=== PATIENT | male | born 1990 | race Caucasian/White ===

== ENCOUNTER 2018-05-04 12:47 | Emergency (ER) | payer BC ==
[2018-05-04] MEDS ORDERED: Pantoprazole 40 MG VIAL ONE (13:09)
[2018-05-04] MEDS ORDERED: Ondansetron PF 4 MG/2 ML Vial ONE (13:09)
[2018-05-04] MEDS ORDERED: Morphine 4 MG/ML VIAL ONE (13:09)
[2018-05-04] MEDS ORDERED: Sodium Chloride 0.9% 1,000 ML ONE (13:09)
[2018-05-04 13:16] LABS: #Basophils 0.1 thou/uL (0.0-0.2); #Eosinphils 0.2 thou/uL (0.0-0.7); #Lymphocytes 3.3 thou/uL (1.20-3.40); #Monocytes 0.6 thou/uL (0.11-0.59); #Neutrophils 3.9 thou/uL (1.40-6.50); %Basophils 1.2 % (0.0-1.0); %Eosinophils 2.3 % (0.0-10.0); %Lymphocytes 40.7 % (21.0-51.0); %Neutrophils 48.7 % (42.0-75.0); Hemoglobin 16.5 g/dL (14.0-18.0); Mean Corpuscular HGB CONC 33.5 g/dL (32.0-36.0); Mean Corpuscular Hemoglobin 29.3 pg (27.0-31.0); Mean Corpuscular Volume 87.2 fL (78.0-98.0); Platelet Count 355 thou/uL (130-400); RBC Distribution Width 11.4 % (11.5-14.5); Red Blood Cell (RBC) Count 5.62 mill/uL (4.70-6.10); White Blood Cell (WBC) Count 8.1 thou/uL (4.8-10.8)
[2018-05-04 13:29] LABS: ALT (SGPT) 84 U/L (8-55); AST (SGOT) 73 U/L (5-34); Albumin 5.1 g/dL (3.5-5.0); Alkaline Phosphatase 95 U/L (40-150); Anion Gap 19 mmol/L (10-20); BUN (Urea Nitrogen) 14 mg/dL (8.9-20.6); Bilirubin, Total 1.3 mg/dL (0.2-1.2); Calc. Creatinine Clearance 0 mL/min (70-130); Calcium 10.5 mg/dL (7.8-10.44); Carbon Dioxide 22 mmol/L (22-29); Chloride 105 mmol/L (98-107); Estimated GFR-MDRD Greater than 90; Globulin 3.2 g/dL (2.4-3.5); Glucose 118 mg/dL (70-105); Lipase 25 U/L (8-78); Potassium 3.9 mmol/L (3.5-5.1); Protein, Total 8.3 g/dL (6.0-8.3); Sodium 142 mmol/L (136-145)
--- NOTE | 2018-05-04 14:13 | CT ---
CT ABDOMEN AND PELVIS WITHOUT CONTRAST: Date: 05/04/18 HISTORY: Epigastric pain, mid abdominal pain, radiating to back. Patient had cholecystectomy 4 months ago. FINDINGS: Absence of oral and IV contrast reduces the sensitivity of exam for evaluation of solid organs and berto wel. The lung bases are unremarkable. No free air or free fluid is seen in the abdomen or pelvis. The justyn ent is post cholecystectomy. There is borderline splenomegaly with the spleen measuring 13.4 cm in ob lique AP dimension. There is a 3.0 x 4.0 cm fluid collection adjacent to the anterior inferior aspect of the liver surfac e and probably in the gallbladder fossa which may represent a postop collection such as seroma or a b iloma. No calculi are seen in the kidneys, ureters, or the urinary bladder. No hydroureteronephrosis is seen on either side. There is a small, fat-containing left inguinal hernia. There are degenerative change s in the spine. A duodenal diverticulum is present. A normal appearing appendix is seen. IMPRESSION: 1. Status post cholecystectomy with a 4.0 x 3.0 cm fluid collection in the gallbladder fossa which m ay be due to a biloma or postop seroma. This is less likely to represent abscess formation. 2. Borderline splenomegaly. 3. No CT evidence of urinary tract calculi or obstruction. 4. No evidence of appendicitis. POS: [facility]
== END 2018-05-04 15:42 | disposition short-term general hospital (02) ==
LOC: MADERS 12:47
DX: R10.11 Right upper quadrant pain (principal); R11.2 Nausea with vomiting, unspecified; I10 Essential (primary) hypertension; F17.220 Nicotine dependence, chewing tobacco, uncomplicated; Z79.899 Other long term (current) drug therapy
CPT/HCPCS: 36415; 74176; 80053; 83605; 83690; 85025; 96361; 96374; 96375; C9113; J2270; J2405; J7050